=== PATIENT | female | born 1960 | race Caucasian/White ===

== ENCOUNTER → 2023-08-10 12:00 | Outpatient (REF) | payer OTHER, SELFPAY ==
--- NOTE | 2023-08-12 08:26 | PN.DIAED04 ---
Education Record
- Education Record
Class Attended: Class 2
[facility] Class Series Code: [id number]
Instructor: Registered Dietitian (Olivia Domingo, SHIMONN, LDN)
Class Length (mins): 120
== END ==
LOC: DES 12:00
PROVIDERS: ATTENDING PHYSICIAN Nurse Practitioner Family
DX: E10.65 Type 1 diabetes mellitus with hyperglycemia (principal)
CPT/HCPCS: 99078

== ENCOUNTER → 2023-08-17 12:00 | Outpatient (REF) | payer OTHER, SELFPAY ==
--- NOTE | 2023-08-19 07:49 | PN.DIAED04 ---
Education Record
- Education Record
Class Attended: Class 3
DS[facility] Class Series Code: [id number]
Instructor: Registered Dietitian (Cara Holcomb, RD, LDN, CDE)
Class Length (mins): 120
Post-Class 2 & 3 Test Score (%): 94
== END ==
LOC: DES 12:00
PROVIDERS: ATTENDING PHYSICIAN Nurse Practitioner Family
DX: E10.65 Type 1 diabetes mellitus with hyperglycemia (principal)
CPT/HCPCS: 99078

== ENCOUNTER → 2023-08-31 12:00 | Outpatient (REF) | payer OTHER, SELFPAY ==
--- NOTE | 2023-08-31 15:42 | PN.DIAED04 ---
Education Record
- Education Record
Class Attended: Class 4
DSME Class Series Code: [id number]
Instructor: Nurse Practitioner (BENNIE Ferguson)
Class Length (mins): 120
Post-Class 4 Test Score (%): 100
== END ==
LOC: DES 12:00
PROVIDERS: ATTENDING PHYSICIAN Nurse Practitioner Family
DX: E10.65 Type 1 diabetes mellitus with hyperglycemia (principal)
CPT/HCPCS: 99078

== ENCOUNTER 2024-10-03 18:59 | Inpatient (IN) | payer OTHER, SELFPAY ==
[2024-10-03] VITALS (8 sets, daily range): BP systolic 113–138; BP diastolic 52–85; BMI 19.1
--- NOTE | 2024-10-03 17:05 | HPS.HSE ---
Family Physician
-
Family Physician: NO INTERVIEW UNKNOWN
Chief Complaint
-
weakness
History of Present Illness
Patient is a 63-year-old female with past medical history significant for type 1 diabetes, hypertension, CKD, multinodular goiter, chronic CLL and stage IIb triple positive breast cancer who presented [facility] ED for evaluation of weakness. She reports
she was s/p first chemo infusion last Thursday09/26/2024 when she felt she was not returning to baseline and just felt extremely weak. After reviewing with oncology it was decided she should present to ED for evaluation and treatment. Patient reports
during workup in ED she had complaints of midsternal chest tightness with abnormal EKG that prompted cardiology workup and ultimately revealing NSTEMI. Patient was taken to laborer construction or leak gang today and found to have a CAD, Seaming Machine Operator reviewed with Dr. Hewitt
who does not feel patient is a good surgical canidate so patient will go to laborer construction or leak gang to attempt to place balloon tomorrow.
Medical History
Past Medical History
Past Medical History: Reports Other
Additional Past Medical History:
type 1 diabetes
hypertension
CKD stage I
multinodular goiter
chronic CLL
stage IIb triple positive breast cancer
diabetic retinopathy
macular degeneration
depression
Past Surgical History: Reports Other
Additional Past Surgical History:
right breast lymphnode removal
LCW port placement
Social History
Tobacco: Non-smoker
Alcohol: None
Drug: None
Living: Alone
Employment: Not Employed
Family History
Family History: Not pertinent
Allergies / Home Medications
Allergies reflects when Allergies were last updated in [facility].
Home Medications with original date entered in [facility]
Allergy/Medication List:
Allergies
Allergy/AdvReac Type Severity Reaction Status Date / Time
clindamycin Allergy Unknown Unknown Verified 10/03/24 19:46
ampicillin Allergy Anaphylaxis Verified 10/03/24 19:46
crab Allergy shellfish Verified 10/03/24 19:03
insulin lispro Allergy Unknown Verified 10/03/24 19:46
insulin lispro protamine Allergy Unknown Verified 10/03/24 19:46
sulbactam Allergy Anaphylaxis Verified 10/03/24 19:46
Home Medications
aflibercept 2 mg/0.05 mL intravitreal solution for injection 2 mg intravitreal Q12W 10/03/24
insulin NPH isoph U-100 human 100 unit/mL subcutaneous suspension 20 unit SC DAILY 10/03/24
insulin regular human 100 unit/mL injection solution 10 unit SC TID 10/03/24
lisinopril 10 mg tablet 10 mg PO DAILY 10/03/24
multivitamin 1 tab PO DAILY 10/03/24
Review of Systems
-
History Source: Patient
Constitutional: Reports No Symptoms
EENT: Reports No Symptoms
Respiratory: Reports No Symptoms
Cardiac: Reports No Symptoms
Abdomen/GI: Reports No Symptoms
: Reports No Symptoms
Musculoskeletal: Reports No Symptoms
Skin: Reports No Symptoms
Neurological: Reports Weakness
Endocrine: Reports No Symptoms
Hematologic/Lymphatic: Reports No Symptoms
Psych: Reports No Symptoms
Physical Exam
Physical Exam
General: Well Developed, Well Nourished, No Apparent Distress, Comfortable and Conversant
HEENT: NormoCephalic, Moist mucous membranes, Atraumatic, Nose Appears Normal and Ears Appear Normal
Respiratory: Clear and Non Labored Respirations
Cardiac: S1/S2 and Regular Rhythm
Breast: Deferred by me
GI: Soft, Non Tender, Non Distended and Normal Bowel Sounds
Rectal: Deferred by Provider
Genito-urinary: Deferred by me
Musculoskeletal: No Clubbing, No Cyanosis and No Edema
Skin: Warm and IV/Catheter Site (LCW port )
Neuro: Awake, Alert, AO x 3 and Nonfocal/grossly intact
Psych: Calm and Intact Judgment/Insight
Impression/Plan
-
IMPRESSION/PLAN:
#NSTEMI
#CAD
transferred from [facility] for further treatment
- Admit to IVU
- Consult Cardiology
- heparin gtt
- NPO at midnight for laborer construction or leak gang tomorrow
- continue atorvastatin and aspirin
#type 1 diabetes
- hold home insulin while NPO
- AccuCheck
- SSI
#hypertension
- continue lisinopril and metoprolol
#CKD stage I
BUN , Creat , est CrCl , eGFR
- monitor BMP
#stage IIb triple positive breast cancer
- continue to follow up out patient with [facility]
#chronic CLL
#multinodular goiter
Code status: full code
DVT prophylaxis: Heparin gtt
[2024-10-03 19:01] LABS: Glucose - Point of Care 244 mg/dl (70-99)
--- NOTE | 2024-10-03 19:25 | W.PN.UPDATE ---
Update Note
Progress Note Update
This note serves as an addendum to the H&P by police matron AJAY Rosamaria Herzog
63F TF form [facility] to hospitalist service requested by Intervention certified dialysis technician Dr Barton for cardiac cath tomorrow for PTCA residual RCA occlusion.
Patient was presented with fatigue plus abnormal EKG with TWI. Dxed NSTEMI. Patient underwent cardiac cath found to have 2 large vessel dz and small vessel CAD.
Per [facility] Health Club Attendant discussion with CTS, not a candidate for CABG due to small vessel dz.
[facility] Club Attendant TF to under Hospitalist service for Cardiac cath in AM to intervene RCA stant and PTCA.
Significant PMHx
HX CLL
New stage II B Breast CA, last Chemo was last Thursday
IDDM with recent A1C was 8.2
Vital Signs
Temp Pulse Resp Pulse Ox
98.7 F 100 16 97
10/03/24 19:28 10/03/24 19:28 10/03/24 19:28 10/03/24 19:28
PE:
Thin , NAD , conversant
Chest : CTA
Cor: RRR S1S2
Soft benign abdomen
Recent Lab at per Health Club Attendant
WCC 39
A1C 8.2
Pending Labs
ASSESSMENT & PLAN
NSTEMI
2 large vessel dz and small vessel CAD : Not for CABG
- NPO after MN and allow clear sips till 4 Hrs prior to procedure
- Heparin gtt without bolus
- Health Club Attendant Jacome to follow in AM
Significant PMHx
HX CLL
New stage II B Breast CA, last Chemo was last Thursday
IDDM with recent A1C was 8.2
- cont all inpatient Meds form [facility]
DVT Px: Heparin gtt
Full code
IVU .
[2024-10-03] MEDS: LIPITOR PO ×2 (20:13→20:22)
[2024-10-03] MEDS: HEPARIN 25000 UNITS/250 ML IV (20:24)
[2024-10-03 20:30] LABS: APTT 27.3 Sec (23.4-35.0)
[2024-10-03 20:32] LABS: ALT (SGPT) 35 U/L (0-35); AST (SGOT) 29 U/L (14-36); Albumin 3.1 g/dl (3.5-5.0); Alkaline Phosphatase 73 U/L (38-126); Blood Urea Nitrogen 19 mg/dl (7-17); Calcium 8.1 mg/dl (8.4-10.2); Carbon Dioxide 21 mmol/L (22-30); Chloride 106 mmol/L (98-107); Estimated Creatinine Clearance 74 ml/min; Glucose 234 mg/dl (70-99); Magnesium 1.8 mg/dl (1.6-2.3); Potassium 4.2 mmol/L (3.5-5.1); Sodium 131 mmol/L (135-145); Total Bilirubin 0.5 mg/dl (0.2-1.3); Total Protein 4.9 g/dl (6.3-8.2); eGFR > 60.00
[2024-10-03 20:39] LABS: Hematocrit 23.5 % (37.0-47.0); Hemoglobin 7.8 g/dL (12.0-16.0); Mean Corp Hgb Conc. 33.2 g/dL (33.0-37.0); Mean Corpuscular Hgb 32.5 pg (27.0-31.0); Mean Corpuscular Volume 97.9 fL (81.0-99.0); Mean Platelet Volume 11.4 fL (7.4-10.4); Platelet Count 108 10^3/uL (130-400); Red Cell Dist. Width 13.8 % (11.5-14.5); White Blood Cell Count 42.6 10^3/uL (4.8-10.8)
--- NOTE | 2024-10-03 22:22 | PTCARENOTE ---
Pt transferred from [facility] to [facility] at change of shift, aaox3, anxious and agitated at times. Denies chest pain, SOB or any other complaints. R band to right radial intact and inflated, no bleeding or bruising noted, good radial pulse, Pox 98% to right
hand. EKG obtained and labs drawn, heparin gtt started as per order. SR on the monitor, HR 70's, BP stable. Pt oriented to room and call light. POC ongoing and in agreement.
[2024-10-03 23:00] LABS: Glucose - Point of Care 292 mg/dl (70-99)
[2024-10-04] VITALS (12 sets, daily range): BP systolic 91–138; BP diastolic 47–67; BMI 19.1
--- NOTE | 2024-10-04 | W.PN.UPDATE ---
Update Note
Progress Note Update
RN reports patient with loose stoolx3. per notes patient's chemo was last Thursday. Denies abdomen pain, no fever, no recent travels. Discussed with admitting Will order stool studies.
--- NOTE | 2024-10-04 01:19 | PTCARENOTE ---
Pt requesting imodium d/t having 3 episodes of large watery stools, abd soft & round, hyperactive BS. Afebrile. waste machine offbearer [employer] made aware, stools studies ordered.
[2024-10-04 03:32] LABS: Blood Urea Nitrogen 21 mg/dl (7-17); Calcium 8.1 mg/dl (8.4-10.2); Carbon Dioxide 19 mmol/L (22-30); Chloride 105 mmol/L (98-107); Estimated Creatinine Clearance 63 ml/min; Glucose 399 mg/dl (70-99); HDL Cholesterol 48 mg/dl; LDL Cholesterol, Calculated 56 mg/dl; Potassium 4.7 mmol/L (3.5-5.1); Sodium 131 mmol/L (135-145); Total Cholesterol 127 mg/dl (50-199); Triglyceride 117 mg/dl (10-149); Very Low Density Lipoprotein 23 mg/dl (0-30); eGFR > 60.00
[2024-10-04 03:44] LABS: APTT 44.8 Sec (23.4-35.0)
[2024-10-04 05:32] LABS: Glucose - Point of Care 491 mg/dl (70-99)
--- NOTE | 2024-10-04 05:55 | PTCARENOTE ---
Pt c/o feeling hot and weak @ 0530, stating that feels like her blood sugar is high. Blood sugar checked and showing RR HI, stat glucose ordered and pending. Pt concern and upset that insulin was not given to her when admitted at 1900 when her
personal device was showing higher results than ours. Pt educated on hospitals protocol and reassured that chronometer tester INSULATION NOZZLEMAN was made aware and did not order coverage as results were under 300. Also, this nurse requested a one time insulin coverage order
to administer before pt ate dinner at 2030 for blood sugar 244 and denied.
[2024-10-04 06:50] LABS: Glucose 353 mg/dl (70-99)
--- NOTE | 2024-10-04 06:54 | W.PN.UPDATE ---
Update Note
Progress Note Update
RN made HOG DRIVER aware of BS 353 in AM, insulin ordered per protocol.�
advised to check in two hours per protocol
[2024-10-04] MEDS: NOVOLOG FLEXPEN 9 UNITS SC (07:00)
[2024-10-04 08:33] LABS: Glucose - Point of Care 395 mg/dl (70-99)
--- NOTE | 2024-10-04 08:36 | CON.CAR ---
Addendum entered and electronically signed by Ilya Myers MD 10/04/24 13:26:
I saw and examined the patient.
The Farmer And Grazier's note was reviewed and I agree with the note.
Comment: Briefly, 63-year-old woman past medical history of type 1 diabetes, breast cancer and CLL who presented to [facility] on 10/01/2024 for evaluation of chest discomfort and abnormal ECG consistent with NSTEMI.
Left heart catheterization at [place] revealed two-vessel disease. Not thought to be candidate for surgical revascularization and plan is for tentative PCI later today.
No evidence of decompensated heart failure based on physical exam
Maintaining sinus rhythm on telemetry
Continue current cardiac meds: Aspirin/Plavix, high intensity statin, beta-maria de jesus and heparin drip
Eventual cardiac rehab
Original Note:
Consultation
Consultation Request
Date/Time Consultation Requested: 10/03/24 at 2000
Date/Time Consultation Performed: 10/04/24 at 1015
Requesting Provider: Dr. Johnson
Performing Provider: Dr. Myers
Reason for Consultation: Chest pain, CAD
Medical History
-
History of Present Illness:
Patient was transferred from [facility] to [facility] on 10/03/2024 and cardiology is now consulted to follow along for CAD. Patient was admitted to [facility] on 10/01/2024 with chest pain and heaviness and it was unclear if her symptoms could have been related to blood
sugar control or even symptoms following recent initiation of chemotherapy for her newly diagnosed breast cancer. Patient went to [facility] and was admitted with possible ACS and ECG that showed nonspecific ST changes. Troponin was elevated, but I do
not have those results. Patient was managed as an NSTEMI at [facility] and had cardiac cath 10/03/2024 was found to have circumflex and RCA disease that was brought to [facility] for planned intervention on 10/04/2024.
[facility]:
Type 1 diabetes
Breast cancer
Stage IIb triple positive following with Dr. Mcfadden
CLL
HTN
CKD 1
Past Medical History
Past Medical History: Other (In HPI)
Past Surgical History: Gynecological (breast biopsy)
Social History
Tobacco: Non-Smoker
Alcohol: None
Drug: None
Personal: Single
Family History
Family History: Other (FH of brain tumor/cancer)
Allergies / Home Medications
Allergy/AdvReac Type Severity Reaction Status Date / Time
clindamycin Allergy Unknown Unknown Verified 10/03/24 19:46
ampicillin Allergy Anaphylaxis Verified 10/03/24 19:46
crab Allergy shellfish Verified 10/03/24 19:03
insulin lispro Allergy Unknown Verified 10/03/24 19:46
insulin lispro protamine Allergy Unknown Verified 10/03/24 19:46
sulbactam Allergy Anaphylaxis Verified 10/03/24 19:46
�Medication �Instructions �Recorded �Confirmed �Type
aflibercept 2 mg/0.05 mL 2 mg intravitreal Q12W 10/03/24 10/03/24 History
intravitreal solution for injection
insulin NPH isoph U-100 human 100 20 unit SC DAILY 10/03/24 10/03/24 History
unit/mL subcutaneous suspension
insulin regular human 100 unit/mL 10 unit SC TID 10/03/24 10/03/24 History
injection solution
lisinopril 10 mg tablet 10 mg PO DAILY 10/03/24 10/03/24 History
multivitamin 1 tab PO DAILY 10/03/24 10/03/24 History
Review of Systems
-
History Source: Patient
All other systems: Negative unless noted
Physical Exam
Vital Signs
Temp Pulse Resp BP Pulse Ox
98.9 F 107 20 120/52 98
10/04/24 06:44 10/04/24 07:30 10/04/24 06:44 10/04/24 07:10 10/04/24 06:44
GEN: NAD. AAOx3
HEENT: EOMI, MMM
LUNGS: RA. No audible wheeze
CV: SR on tele.
ABD: ND
EXT: No edema
NEURO: Gross non-focal
SKIN: No rash
Lab Results
10/03/24 19:54
10/04/24 05:39
Impression / Plan
-
PCP: Dr. Dionne Frazier
Card: ATC
Impression:
Transferred from [facility] to [facility] for cardiac cath 10/03/24
Admitted to [facility] for ACS 10/01/24
Type 1 diabetes
Breast cancer
Stage IIb triple positive following with Dr. Mcfadden
CLL
HTN
CKD
Hyponatremia
Hyperkalemia, potassium level of 5.3 on admission to [facility] improved to 4.9 without specific intervention
Echo 10/03/2024: EF 55 to 60%, mild MR
Plan:
-Patient was transferred from [facility] to [facility] on 10/03/2024 and cardiology is now consulted to follow along for CAD. Patient was admitted to [facility] on 10/01/2024 with chest pain and heaviness and it was unclear if her symptoms could have been related to
blood sugar control or even symptoms following recent initiation of chemotherapy for her newly diagnosed breast cancer. Patient went to [facility] and was admitted with possible ACS and ECG that showed nonspecific ST changes. Troponin was elevated, but I
do not have those results. Patient was managed as an NSTEMI at [facility] and had cardiac cath 10/03/2024 was found to have circumflex and RCA disease that was brought to [facility] for planned intervention on 10/04/2024.
-ECG reviewed by me is NSR with nonspecific ST changes
-Admission labs ordered and then reviewed by me and WBC is 42.6 with known history of CLL
-Hgb is 7.8 with Hgb at [facility] of 9.8. Patient was followed by oncology at [facility] as she had her first chemotherapy treatment for breast cancer last week and anemia was being blamed on her chemotherapy
-Echo as noted above was reviewed and summarized in this note by me. EF is preserved with only mild MR
-No fasting lipid profile checked at [facility] as far as I can tell in the records that were transferred, fasting lipid profile checked at [facility] on 10/04/2024 and the LDL is 56. Patient is new to atorvastatin 40 mg daily that was started at [facility] and has
been continued
-Outpatient dose of lisinopril 10 mg daily has been continued. Patient noted to have hyperkalemia with potassium level as high as 5.3 on admission to [facility], but this improved without specific intervention and lisinopril 10 mg daily was continued.
Potassium is stable at 4.7 on labs reviewed by me 10/04/2024.
-New to Toprol-XL 25 mg daily at [facility] and this has been continued
-New to aspirin 81 mg daily and this has been continued
-Plavix 600 mg PO x 1 now ordered by me and then 75 mg daily starting tomorrow for planned PCI later today
-HgbA1c of 8.2% at [facility] on 10/03/2024. Patient with known type 1 diabetes since age 23
[2024-10-04] MEDS: LOW STRENGTH ASPIRIN 81 MG PO (08:41)
[2024-10-04 08:47] LABS: Glycohemoglobin (HgbA1c) 8.3 % (4.0-5.6)
--- NOTE | 2024-10-04 09:14 | W.PN.HOSP.TC ---
Addendum entered and electronically signed by Susan Johnson MD 10/05/24 10:03:
Physical Exam
General: chronically ill looking, not in distress
HEENT: NormoCephalic, Moist mucous membranes, Atraumatic, Nose Appears Normal and Ears Appear Normal
Respiratory: Clear and Non Labored Respirations
Cardiac: S1/S2
Breast: right breast ulcerated wound
GI: Soft, Non Tender, Non Distended and Normal Bowel Sounds
Rectal: NO bleeding.
Genito-urinary: No Valente
Musculoskeletal: No Clubbing, No Cyanosis and No Edema
Skin: Warm and IV/Catheter Site (LCW port )
Neuro: Awake, Alert, AO x 3 and Nonfocal/grossly intact
Psych: Calm and Intact Judgment/Insight
Original Note:
Today's Communication/Plan
-
PRN Imodium after submitting stool for testing
f/w cardiology recommendations
consulted oncology, will know more about baseline blood counts, might need RBC infusion.
Appreciate DM/WET PRESS TENDER & wound care nurse help
Assessment / Plan
Assessment / Plan
# NSTEMI
Per cardiology: Patient was admitted to [facility] on 10/01/2024 with chest pain/ possible ACS and ECG that showed nonspecific ST changes. Troponin was elevated. Patient was managed as an NSTEMI at [facility] and had cardiac cath 10/03/2024 was found to have
circumflex and RCA disease that was brought to [facility] for planned intervention on 10/04/2024.
-currently on IV Heparin gtt
c/w BB, anti-platelets, CHEY, statin
No active chest pain, reports generalized weakness
plan for cath
LDL 56
Echo 10/03/2024: EF 55 to 60%, mild MR
Cardiology is following
# Uncontrolled DM
HGB A1C around 8
Will adjust her insulin coverage
consulted DM / WET PRESS TENDER, appreciate help
# Anemia with thrombocytopenia, related to chemotherapy.
Leukocytosis consistent with history of CLL
# New stage II B breast cancer
- Right breast ulcerated necrotic wound, consulted wound care
- last Chemo was last Thursday
Will d/w oncology
# Hyponatremia
# Underweight
# Diarrhea
No abdominal pain or tenderness
Likely chemo related but ok to do stool testing
Add PRN Imodium
Total time spent to see the patient, examine the patient, review data and lab result, discuss treatment plan with patient, nursing staff around 55 minutes
Anticipated Discharge: > 48 hours
Subjective/Interval History
-
Date of Service: October 04, 2024
Objective Data
-
Labs:
Laboratory Results
10/04/24 10/04/24 10/04/24
02:32 03:11 05:39
APTT 121.0 H 44.8 H
Sodium 131 L
Potassium 4.7
Chloride 105
Carbon Dioxide 19 L
BUN 21 H
Creatinine 0.7
Glucose 399 H 353 H
Calcium 8.1 L
10/04/24
10:00
APTT Pending
Sodium
Potassium
Chloride
Carbon Dioxide
BUN
Creatinine
Glucose
Calcium
Vital Signs:
Vital Signs
Temp Pulse Resp BP Pulse Ox
98.9 F 107 20 120/52 98
10/04/24 06:44 10/04/24 07:30 10/04/24 06:44 10/04/24 07:10 10/04/24 06:44
I&O
10/03/24 10/04/24 10/05/24
06:59 06:59 06:59
Intake Total 564 / 564
Balance 564 / 564
[2024-10-04] MEDS: NOVOLOG FLEXPEN-MODERATE RESISTANCE SC ×2 (09:38→19:37)
[2024-10-04] MEDS: NOVOLOG FLEXPEN 20 UNITS SC (09:39)
[2024-10-04] MEDS: NSS 1000 IV ×2 (09:44→16:45)
[2024-10-04] MEDS: PLAVIX 600 MG PO (09:46)
[2024-10-04 10:39] LABS: APTT 46.5 Sec (23.4-35.0)
--- NOTE | 2024-10-04 11:05 | PN.DE.MGMTRT ---
Insulin Management
- -
10/04/2024 Diabetes Management Consult
Patient admitted 10/03 from [facility]. C/O weakness, abnormal EKG, CC with blockages. PMH Type 1 diabetes, HTN, CKD, multi nodular goiter, chronic CLL, triple + breast CA. Prior to admission patient states she was taking [id number] N 17 units in
the AM with Humulin R using a SS @ meals. A1C on admission 8.3%, cr .7, eGFR > 60.
Patient is awake alert and oriented able to discuss diabetes care. States she sees Vandana Barron, @ [facility]. They have tried fast acting insulin but she 'bottomed out' so returned to R & N.
Glucose yesterday 244, 292 and 399 @ HS. Patient received no insulin.
Fasting 10/[address] Johnson has ordered 20 units novolog this AM.
Lengthy discussion with patient regarding insulin. Will continue NPH 17 units NOW and daily. Patient currently NPO for procedure, will start 4 units R ac with moderate corrective insulin.
Discussed with nurse.
Will follow.
Diabetes History
- -
Type of Diabetes: 1
Pre-Admission Diabetes Regimen
10/03/24 10/04/24
19:54 02:32
Creatinine 0.6 0.7
Lab Results
Hemoglobin A1c 8.3 % (4.0-5.6) H 10/04/24 02:32
Insulin Pump Settings
IP Diabetes Regimen
10/03/24 10/03/24 10/03/24
18:59 19:54 22:59
Glucose 234 H
POC Glucose 244 H 292 H
10/04/24 10/04/24 10/04/24
02:32 05:31 05:39
Glucose 399 H 353 H
POC Glucose 491 H*
10/04/24
08:31
Glucose
POC Glucose 395 H
Meal type: Dinner
Amount consumed: 30%
Patient Education
--- NOTE | 2024-10-04 11:05 | WOUNDNOTE ---
GLUTEAL CLEFT/BUTTOCKS
--- NOTE | 2024-10-04 11:09 | WOUNDNOTE ---
L POSTERIOR LOWER LEG
--- NOTE | 2024-10-04 11:10 | WOUNDNOTE ---
R LATERAL POSTERIOR LOWER LEG
--- NOTE | 2024-10-04 11:11 | WOUNDNOTE ---
LACY RN note: Patient admitted as transfer from [facility] for cardiac catheterization for RCA occlusion.
See H&P for complete history. Lives with mother.
PMH: Patient is a 63-year-old female with past medical history significant for type 1 diabetes, hypertension, CKD, multinodular goiter, chronic CLL and stage IIb triple positive breast cancer
Wound Location and type/assessment: Patient admitted with: R breast tumor wound. No drainage from site, dry crusted cluster, patient states discomfort when removing dressing. Patient able to turn self to side. Inner buttocks with 2 quesada dry dots,
does not appear to be pressure, patient confirmed she had them before admission. Patient had bout of diarrhea this am, said rectum sore, Calazime at bedside. Heels are intact.
Appetite: NPO
Pressure redistribution devices in place: On air mattress, ad kiera to BR.
Plan:Adaptic and ABD pad applied to R breast, will order Polysporin topical to start tomorrow. Obtained large surgical bra from OR and brought to patient to use tomorrow to secure dressing instead of tape. Patient is willing to try bra.
Will confirm orders with hospitalist and updated nurse Coby. Updated care plan and will follow as needed.
Note to case management of equipment requested for discharge: None.
Recommend follow up with Oncologist.
--- NOTE | 2024-10-04 11:27 | CM ---
Reviewed chart. Met with Ms. Payne to review discharge plans. She states prior to admission she resides alone in a first floor apartment with eight steps to enter. She states prior to admission she was independent with ambulation and adls. She
states she does not have any DME in the home. She states she has a prescription plan. Medical work-up in progress. The discharge plan is to return home when medically stable.
[2024-10-04 12:11] LABS: Glucose - Point of Care 234 mg/dl (70-99)
[2024-10-04] MEDS: HUMULIN N KWIKPEN 17 UNITS SC (12:35)
[2024-10-04] MEDS: TOPROL XL 25 MG PO (12:40)
[2024-10-04] MEDS: ZESTRIL 10 MG PO (12:41)
--- NOTE | 2024-10-04 14:08 | CON.ONC ---
Consultation
-
Date Consultation Requested: 10/04/24
Date Consultation Performed: 10/04/24
Requesting Provider: Dr. Johnson
Performing Provider: Pina Mcfadden MD
Reason for Consultation: breast cancer, CLL
Impression
Impression
NSTEMI/CAD
triple positive/node-positive right breast cancer, s/p first dose of chemo (TCHP (chemo was dose reduced at her request) +GCSF on 09/26/24)
CLL, with recent WBC count in the 60-70s
Anemia, related to chemo + CLL
IDDM
Anxiety
Plan
Plan
Await LHC today
Mgmt of CAD per cardiology
Leukocytosis is from CLL +/- GCSF - will check manual diff tomorrow
DM mgmt
Next dose of TCHP is scheduled for 10/17; will consider delay and/or further dose adjustments pending hospital recovery
We will follow along
Patient History
History of Present Illness
Sona is a patient of mine, with CLL (with baseline leukocytosis and lymphadenopathy) and also triple positive/node positive right breast cancer, who initiated chemo with taxotere, carboplatin, herceptin and perjecta on 09/26/24. She had delayed the
start of chemo for several months due to anxiety and lack of social support.
After chemo, she noted worsening fatigue and heartburn, which she'd had in the past, though more persistent. She presented to the ER at [facility] on 10/02/24 and was admitted for NSTEMI. She underwent LHC at [facility] yesterday, showing significant CAD. She was
transferred to for CT surg evaluation, but deemed a poor candidate for CT surgery. Repeat LHC with interventions is planned today.
Past-Medical/Surgical History
PMH/PSH - as above, also IDDM, cataracts, hyperlipidemia, laser eye surgeries
SH: no alcohol, non-smoker, unemployed, single
FH: N/C
Patient Medication
�Medication �Instructions �Recorded �Confirmed �Last Taken �Type
aflibercept 2 mg/0.05 mL 2 mg intravitreal Q12W 10/03/24 10/03/24 Unknown History
intravitreal solution for injection
insulin NPH isoph U-100 human 100 20 unit SC DAILY 10/03/24 10/03/24 Unknown History
unit/mL subcutaneous suspension
insulin regular human 100 unit/mL 10 unit SC TID 10/03/24 10/03/24 Unknown History
injection solution
lisinopril 10 mg tablet 10 mg PO DAILY 10/03/24 10/03/24 Unknown History
multivitamin 1 tab PO DAILY 10/03/24 10/03/24 Unknown History
Active Medications
Generic Name Dose Route Start Last Admin
Trade Name Freq PRN Reason Stop Dose Admin
Acetaminophen 650 mg 10/03/24 17:53
Acetaminophen 325 Mg Tablet PO 10/31/24 17:52
Q4HPRN PRN
mild pain/PATTON/temp> 100.4F
Al Hydrox/Mg Hydrox/Simethicone 30 ml 10/03/24 17:53
Mag/Al/Simethicone Suspension 30 Ml Cup PO 10/31/24 17:52
Q6HPRN PRN
Heartburn
Aspirin 81 mg 10/04/24 08:00 10/04/24 08:41
Aspirin 81 Mg Chewable Tablet PO 11/01/24 07:59 81 mg
DAILY SUSI Administration
Atorvastatin Calcium 40 mg 10/03/24 18:00 10/03/24 20:22
Atorvastatin (Lipitor) 40 Mg Tablet PO 10/31/24 17:59 Not Given
QPM SUSI
Bacitracin/Polymyxin B Sulfate 0 applic 10/05/24 08:00
Bacitracin/Polymyxin B (Ointment) Unit Dose Packet TOPICAL
DAILY SUSI
Bisacodyl 10 mg 10/03/24 17:53
Bisacodyl 10 Mg Rectal Suppository RECTAL 10/31/24 17:52
[id number] PRN
constipation
Dextrose 12.5 grams 10/03/24 17:53
Dextrose 50% (0.5 Grams/Ml) 50 Ml Syringe IV 10/31/24 17:52
[id number] PRN
hypoglycemia
Protocol
Glucagon 1 mg 10/03/24 17:53
Glucagon 1 Mg Vial IM 10/31/24 17:52
PRN PRN
hypoglycemia
Protocol
Heparin Sodium (Porcine) 250 unit 10/03/24 21:00
Heparin Flush Pf (100 Unit/Ml) 5 Ml Syringe IV 10/31/24 20:59
PER PROTOCOL SUSI
Heparin Sodium (Porcine) 500 unit 10/03/24 21:45 10/04/24 02:37
Heparin Flush Pf (100 Unit/Ml) 5 Ml Syringe IV 10/31/24 21:44 500 unit
PER PROTOCOL SUSI Administration
Heparin Sodium 25,000 units in 250 mls @ 0 mls/hr 10/03/24 20:00 10/03/24 20:24
Heparin [id number] Units/250 Ml IV 250 mls
PER PROTOCOL SUSI Administration
Protocol
Per Protocol
Sodium Chloride 1,000 mls @ 125 mls/hr 10/04/24 09:15 10/04/24 09:44
Nss IV 1,000 mls
.Q8H SUSI Administration
Insulin Aspart 0 units 10/04/24 07:30 10/04/24 09:38
Insulin Aspart Moderate Resistance 300 Units/3 Ml Pen.Injctr SC 11/01/24 07:29 Not Given
AC SUSI
Protocol
Insulin Human NPH 17 units 10/05/24 08:00
Insulin Nph (100 Units/Ml) 3 Ml Kwikpen SC 11/02/24 07:59
DAILY SUSI
Insulin Human Regular 4 units 10/04/24 11:30
Insulin Regular (100 Units/Ml) 3 Ml Flexpen SC 11/01/24 11:29
AC SUSI
Lisinopril 10 mg 10/04/24 08:00 10/04/24 12:41
Lisinopril 10 Mg Tablet PO 11/01/24 07:59 10 mg
DAILY SUSI Administration
Metoprolol Succinate 25 mg 10/04/24 08:00 10/04/24 12:40
Metoprolol 25 Mg Extended Release Tablet PO 11/01/24 07:59 25 mg
DAILY SUSI Administration
Polyethylene Glycol 17 grams 10/03/24 17:53
Polyethylene Glycol Powder 17 Grams Packet PO 10/31/24 17:52
DAILYPRN PRN
constipation
Senna/Docusate Sodium 1 tablet 10/03/24 17:53
Docusate W/Senna (Yara-Colace) Tablet PO 10/31/24 17:52
BIDPRN PRN
constipation
Sodium Chloride 0 flush 10/03/24 20:00
Sodium Chloride 0.9% (Flush) Syringe IV 10/31/24 19:59
PER PROTOCOL SUSI
Review of Systems
-
History Source: Patient
All Other Systems: Not reviewed unless documented
Physical Exam
-
Right breast lower outer quadrant wtih erythema/induration/weeping
General: No Apparent Distress, Comfortable and Conversant
HEENT: Negative Jaundice
Cardiology: Normal Sinus Rhythm
Pulmonary: Clear
GI: Soft
Musculoskeletal: No Clubbing, No Cyanosis and No Edema
Neurology: Non Focal, No Lateralizing Symptoms and No Word Finding Difficulty
Skin: Warm and Dry
Psych: Intact Judgement/Insight and Anxious
Labs
Lab Results
WBC 42.6 10^3/uL (4.8-10.8) H* 10/03/24 19:54
RBC 2.40 10^6/uL (4.20-5.40) L 10/03/24 19:54
Hgb 7.8 g/dL (12.0-16.0) L 10/03/24 19:54
Hct 23.5 % (37.0-47.0) L 10/03/24 19:54
MCV 97.9 fL (81.0-99.0) 10/03/24 19:54
MCH 32.5 pg (27.0-31.0) H 10/03/24 19:54
MCHC 33.2 g/dL (33.0-37.0) 10/03/24 19:54
RDW 13.8 % (11.5-14.5) 10/03/24 19:54
Plt Count 108 10^3/uL (130-400) L 10/03/24 19:54
MPV 11.4 fL (7.4-10.4) H 10/03/24 19:54
Creatinine 0.7 mg/dL (0.6-1.0) 10/04/24 02:32
Vital Signs
Vital Signs
Temp Pulse Resp BP Pulse Ox
98.8 F 97 18 138/67 97
10/04/24 12:24 10/04/24 12:41 10/04/24 12:24 10/04/24 12:41 10/04/24 12:24
[2024-10-04 15:27] LABS: ACT-LR - POC > 397 Seconds (116-155)
[2024-10-04 16:46] LABS: Glucose - Point of Care 180 mg/dl (70-99)
--- NOTE | 2024-10-04 17:34 | ITS.CL.ANGIO ---
Skilled Helper - Angioplasty
Angioplasty
Procedure Report:
LEFT HEART CATHETERIZATION
Date of Procedure: October 04, 2024
Procedures performed:
1: Percutaneous coronary intervention of the left circumflex artery with placement of a 2.0 x 26 mm Oli drug-eluting stent
2: Percutaneous coronary invention of the right coronary artery with placement of a 2.25 x 12 mm [place] drug-eluting sten
Primary Care Physician: Dr. Dionne Frazier
Primary Manager Of Sales: Dr. Cliff Rodriguez
INDICATION: The patient is a 63-year-old woman with a very complex past medical history including diabetes type 1 for over 30 years, chronic lymphocytic leukemia, recent diagnosis of breast cancer and status post her first episode of chemotherapy in
the past couple weeks, and hypertension. She presented to [place] with weakness after chemotherapy and some component of exertional chest discomfort. Echocardiography showed normal biventricular function. CPK and CK-MB's were normal however
high-sensitivity troponins were elevated and concerning for a non-STEMI. She underwent a cardiac catheterization yesterday at [facility] which revealed severe diffuse small vessel diabetic disease. The case was discussed with Dr. Freeman
Marcelina from CT surgery and after a heart team discussion we elected to proceed with a two-vessel percutaneous coronary intervention attempt.
ACCESS: The patient was prepped and draped in usual sterile fashion. A 6 Egyptian sheath was placed in the right common femoral artery using the Seldinger over the wire technique. Ultrasound guidance was used. I went from a femoral approach
anticipating need for 6 Egyptian guiding catheters and knowing that her radial artery was too small to accommodate 6 Egyptian. I had previously had some difficulty with 5 Egyptian diagnostic catheters yesterday with a diagnostic angiogram performed at
[facility].
HEMODYNAMIC FINDINGS (mmHg):
LV(s/d,EDP): Valve not crossed
Ao(s/d,m): 105/43, 66
ANGIOGRAPHIC FINDINGS from full diagnostic report performed yesterday at [facility]:
Coronary Angiography:
Dominance: Right
Left Main: Medium caliber, patent.
Left Anterior Descending: The left anterior descending artery is a very small caliber vessel that gives rise to 1 major high bifurcating diagonal branch that is also very small caliber. These vessels are diffusely calcified with diffuse small
vessel diabetic disease throughout. That said there is no focal high-grade clearly obstructive lesion angiographically in the LAD which has normal distal flow. The major diagonal branch again is diffusely diseased with a long area of 80 to 90%
stenosis in the larger medial branch.
Left Circumflex: The left circumflex is also a small caliber vessel that is diffusely diseased throughout with heavy proximal calcification. The first obtuse marginal branch is a small caliber vessel that has diffuse moderate luminal irregularities
with normal distal flow. The mid circumflex after the OM1 takeoff has a calcified thrombotic occlusion with faint antegrade flow filling what appears to be 2 small caliber distal OM's with poor antegrade flow. There is no evidence of left to left
or right to left collateral filling of these distal vessels.
Right Coronary: The right coronary artery is a very small caliber dominant vessel that gives rise to a small caliber posterior descending artery and posterior left ventricular branch. There is diffuse calcification throughout the AV groove with
mild luminal irregularities throughout. There is a smooth 70 to 80% proximal stenosis in the right coronary artery. The posterior descending artery appears to have more moderate severe small vessel disease in the midportion. Despite this there is
normal distal flow in all vessels.
Percutaneous Coronary Intervention (PCI) of the left circumflex: The patient was pretreated with oral aspirin and Plavix. Unfractionated heparin was given. A 6 Egyptian XB 3.0 guiding catheter was used to engage the left main. A long Hi-Torque
floppy wire was successfully advanced across the mid circumflex occlusion and into the distal left-sided posterior left ventricular branch. Attempts to place a second wire into the more proximal OM were not readily successful. A 1.5 mm diameter
balloon was used to dilate and distal to proximal fashion and restore antegrade flow into the distal circumflex. This also improved flow into the more proximal OM. Ultimately a Whisper wire was successfully advanced down the heavily calcified and
small caliber OM. Attempts to pass a 1.5 mm and then a 1.2 mm diameter balloon were not successful due to heavy calcification in a critically diseased small caliber vessel. I chose to stop attempting to deliver balloons in this vessel as I was not
convinced that it was large enough to safely place a 2.0 mm stent even if I could get a balloon across the lesion. I then pulled back the Whisper wire and used a Guideliner to deliver a 2.0 x 26 mm [place] drug-eluting stent over the Hi-Torque floppy
wire. The stent was deployed at 12 sandoval. The stent was postdilated at 16 sandoval distally and 18 sandoval proximally using a 2.0 x 15 mm noncompliant balloon. Care was taken to stay within the stented margins.
FINAL RESULT: 0% in-stent residual stenosis with an excellent angiographic result and DEREK-3 flow into the distal circumflex. Improved flow into the severely diseased more proximal OM that has a calcified 90% proximal stenosis with DEREK II distal
flow in a very small caliber vessel.
PCI of the right coronary artery: I then turned my attention to the right coronary artery. A 6 Egyptian JR4 guiding catheter was used to nonselectively engage this very small caliber vessel. A short Hi-Torque floppy wire was easily advanced across
the vessel and predilation was performed with a 1.5 mm diameter balloon. Next a 2.25 x 12 mm [place] drug-eluting stent was deployed at the lesion. The stent was postdilated to high-pressure with a 2.25 mm balloon. This was done in a distal to
proximal fashion taking care to stay within the stented margins.
FINAL RESULT: 0% in-stent residual stenosis with an outstanding angiographic result and DEREK-3 flow in all distal vessels.
Fluoroscopy Time (min): 20
Radiation Dose (mGy): 567
DAP (Gy.cm2): 23
Closure device: 6 Egyptian Angio-Seal to right common femoral artery
Complications: None.
ASSESSMENT:
1: Successful PCI of the left circumflex and right coronary arteries with placement of very small caliber drug-eluting stents as described above.
2: Severe residual small vessel diffuse diabetic disease in the diagonal and circumflex system that is not amenable to percutaneous coronary intervention and should be treated medically.
CONCLUSIONS and RECOMMENDATIONS:
1: Dual antiplatelet therapy with aspirin and Plavix uninterrupted for at least 6 months. She is clearly at high bleeding risk with her cancer and CLL now status post chemotherapy with anemia which is clearly multifactorial. Ideally she would
receive aspirin 81 mg daily indefinitely without interruption.
2: Medical therapy for coronary artery disease.
Lbirado Barton M.D.
Copy to: Dr. Dionne Frazier
--- NOTE | 2024-10-04 17:45 | PTCARENOTE ---
Received pt from forestry laborer. VSS. Right groin site w/ dressing clean, dry and intact. Pt denies any chest pain. Post angiography orders noted. Will monitor.
[2024-10-04 19:02] LABS: Glucose - Point of Care 218 mg/dl (70-99)
--- NOTE | 2024-10-04 19:27 | PTCARENOTE ---
Pt slept post cath until 1825. At 1850, pt's breast noted to have bled throught the dressing, pt's gown and onto the sheets. Pt cleaned up and right breast dressing changed. Pt w/o discomfort. Will monitor.
[2024-10-04] MEDS: NovoLIN R Flexpen SC (19:37)
[2024-10-04] MEDS: NSS IV (19:38)
[2024-10-04 20:19] LABS: Glucose - Point of Care 261 mg/dl (70-99)
[2024-10-04] MEDS: NovoLIN R Flexpen 4 UNITS SC (20:19)
[2024-10-04] MEDS: NOVOLOG FLEXPEN-MODERATE RESISTANCE 5 UNITS SC (20:21)
[2024-10-04] MEDS: LIPITOR 40 MG PO (20:28)
--- NOTE | 2024-10-04 20:47 | PTCARENOTE ---
Assumed care on pt at 1900, bleeding from R breast ca wound, slight pressure applied and redressed area, will monitor for bleeding. SR on the monitor, HR 80-90's, bp stable. R groin dsg CDI, no hematoma, bleeding or bruising noted, good distal
pulses. Blood sugar 261 at 2015, 1630 insulin order given and pt eating dinner. IVF infusing. Call mai within reach, POC ongoing.
[2024-10-04 21:54] LABS: Glucose - Point of Care 245 mg/dl (70-99)
[2024-10-05] VITALS (13 sets, daily range): BP systolic 106–136; BP diastolic 48–79; BMI 18.9
[2024-10-05] MEDS: NSS IV ×2 (02:16→12:42)
[2024-10-05 04:15] LABS: Hematocrit 20.1 % (37.0-47.0); Hemoglobin 6.5 g/dL (12.0-16.0); Mean Corp Hgb Conc. 32.3 g/dL (33.0-37.0); Mean Corpuscular Hgb 31.9 pg (27.0-31.0); Mean Corpuscular Volume 98.5 fL (81.0-99.0); Platelet Count 132 10^3/uL (130-400); Red Blood Cell Count 2.04 10^6/uL (4.20-5.40); Red Cell Dist. Width 13.8 % (11.5-14.5); White Blood Cell Count 41.9 10^3/uL (4.8-10.8)
[2024-10-05 04:29] LABS: Blood Urea Nitrogen 25 mg/dl (7-17); Calcium 8.3 mg/dl (8.4-10.2); Carbon Dioxide 20 mmol/L (22-30); Chloride 107 mmol/L (98-107); Estimated Creatinine Clearance 63 ml/min; Glucose 233 mg/dl (70-99); Potassium 4.4 mmol/L (3.5-5.1); Sodium 131 mmol/L (135-145); eGFR > 60.00
[2024-10-05 05:06] LABS: Absolute Neutrophils -Man Diff 10.8 10^3/uL (1.4-6.5); Band Neutrophils 3 % (0-3); Lymphocytes 74 % (20-51); Monocytes 0 % (2-9); Segmented Neutrophils 23 % (42-75)
[2024-10-05 05:07] LABS: Anisocytosis 2+; Macrocytosis 2+; Normal RBC Morphology No; Platelets Checked Yes; Total Cells Counted 100
[2024-10-05 05:08] LABS: Smudge Cells 3+
--- NOTE | 2024-10-05 05:18 | PTCARENOTE ---
Pt with critical labs this morning, hgb 6.5, hct 20.1. material control manager GALLEY WORKER made aware, repeat H& H ordered.
[2024-10-05 05:22] LABS: Hematocrit 20.5 % (37.0-47.0); Hemoglobin 6.9 g/dL (12.0-16.0)
--- NOTE | 2024-10-05 06:09 | W.PN.UPDATE ---
Update Note
Progress Note Update
Hgb level this am is 6.5, repeated hgb�to confirm is 6.9, no sign of bleeding, vital signs within baseline. One unit of blood ordered.�
--- NOTE | 2024-10-05 06:42 | PTCARENOTE ---
Repeat hgb 6.9, physician relations manager MILL MANAGER made aware, 1 unit of PRBC ordered.
[2024-10-05 07:45] LABS: Glucose - Point of Care 329 mg/dl (70-99)
[2024-10-05 08:09] LABS: ACT-LR - POC > 397 Seconds (116-155)
[2024-10-05 08:09] LABS: ACT-LR - POC > 397 Seconds (116-155)
--- NOTE | 2024-10-05 08:19 | PN.DE.MGMTRT ---
Insulin Management
- -
10/05/2024 Diabetes Management Consult
Patient admitted 10/03 from [facility]. C/O weakness, abnormal EKG, CC with blockages. PMH Type 1 diabetes, HTN, CKD, multi nodular goiter, chronic CLL, triple + breast CA. Prior to admission patient states she was taking [id number] N 17 units in
the AM with Humulin R using a SS @ meals. A1C on admission 8.3%, cr .7, eGFR > 60.
Patient is awake alert and oriented able to discuss diabetes care. States she sees Vandana Barron, @ [facility]. They have tried fast acting insulin but she 'bottomed out' so returned to R & N.
Glucose 10/04 491, 218 and 245 @ HS. NPH 17 units started ~ 11:00am, with 4 units R with meals and moderate corrective insulin.
10/05 Fasting glucose 329. AC Regular insulin increased to 8 units, will start BID NPH 17 units @ 0800 and 1999 (discussed with patient she is agreeable). Continue moderate corrective.
Patient requested all insulin doses ordered be written down for her; provided and left at bedside.
Discussed with nurse.
Will follow.
Diabetes History
- -
Type of Diabetes: 1
Pre-Admission Diabetes Regimen
10/05/24
03:45
Creatinine 0.7
Lab Results
Hemoglobin A1c 8.3 % (4.0-5.6) H 10/04/24 02:32
Insulin Pump Settings
IP Diabetes Regimen
10/04/24 10/04/24 10/04/24
08:31 12:09 16:45
Glucose
POC Glucose 395 H 234 H 180 H
10/04/24 10/04/24 10/04/24
18:50 20:17 21:53
Glucose
POC Glucose 218 H 261 H 245 H
10/05/24 10/05/24
03:45 07:43
Glucose 233 H
POC Glucose 329 H
Meal type: Dinner
Meal type: Lunch
Amount consumed: 100%
Patient Education
[2024-10-05] MEDS: TOPROL XL 25 MG PO (08:39)
[2024-10-05] MEDS: POLYSPORIN OINTMENT 1 APPLIC TOPICAL (08:39)
[2024-10-05] MEDS: PLAVIX 75 MG PO (08:39)
[2024-10-05] MEDS: LOW STRENGTH ASPIRIN 81 MG PO (08:39)
[2024-10-05] MEDS: HUMULIN N KWIKPEN 17 UNITS SC (08:40)
[2024-10-05] MEDS: NOVOLOG FLEXPEN-MODERATE RESISTANCE 9 UNITS SC (09:17)
--- NOTE | 2024-10-05 09:32 | W.PN.HOSP.TC ---
Today's Communication/Plan
-
Treat GERD
One unit of RBCs
Assessment / Plan
Assessment / Plan
Physical Exam
General: chronically ill looking, not in distress
HEENT: NormoCephalic, Moist mucous membranes, Atraumatic, Nose Appears Normal and Ears Appear Normal
Respiratory: Clear and Non Labored Respirations
Cardiac: S1/S2
Breast: right breast ulcerated wound
GI: Soft, Non Tender, Non Distended and Normal Bowel Sounds
Rectal: NO bleeding.
Genito-urinary: No Valente
Musculoskeletal: No Clubbing, No Cyanosis and No Edema
Skin: Warm and IV/Catheter Site (LCW port )
Neuro: Awake, Alert, AO x 3 and Nonfocal/grossly intact
Psych: Calm and Intact Judgment/Insight
# NSTEMI
Per cardiology: Patient was admitted to [facility] on 10/01/2024 with chest pain/ possible ACS and ECG that showed nonspecific ST changes. Troponin was elevated. Patient was managed as an NSTEMI at [facility] and had cardiac cath 10/03/2024 was found to have
circumflex and RCA disease that was brought to [facility] for planned intervention on 10/04/2024.
-currently on IV Heparin gtt
c/w BB, anti-platelets, CHEY, statin
No active chest pain, reports generalized weakness
s/p LHC 10/04 with drug eluting stents of left circumflex and right coronary arteries
LDL 56
Echo 10/03/2024: EF 55 to 60%, mild MR
Cardiology is following
Dual anti-platelet therapy for 6 months then aspirin afterward.
# Worsening GERD
Will do IV PPI BID
Add PRN IV Zofran
# Uncontrolled DM
HGB A1C around 8
Adjust her insulin coverage
consulted DM / COLD ROLLING MACHINE SETTER, appreciate help
# Anemia with thrombocytopenia, related to chemotherapy.
HGB around 6, will give one unit of RBCs.
Leukocytosis consistent with history of CLL
# New stage II B breast cancer
- Right breast ulcerated necrotic wound, consulted wound care
- last Chemo was last Thursday
Will d/w oncology
# Hyponatremia
# Underweight
# Diarrhea
No abdominal pain or tenderness
Likely chemo related but ok to do stool testing
Add PRN Imodium
Total time spent to see the patient, examine the patient, review data and lab result, discuss treatment plan with patient, nursing staff around 55 minutes
Anticipated Discharge: > 48 hours
Subjective/Interval History
-
Date of Service: October 05, 2024
She has nausea/ reflux
No chest pain
Objective Data
-
Labs:
Laboratory Results
10/05/24 10/05/24
03:45 04:42
WBC 41.9 H*
Hgb 6.5 L* 6.9 L*
Hct 20.1 L* 20.5 L*
Plt Count 132 D
Sodium 131 L
Potassium 4.4
Chloride 107
Carbon Dioxide 20 L
BUN 25 H
Creatinine 0.7
Glucose 233 H
Calcium 8.3 L
Vital Signs:
Vital Signs
Temp Pulse Resp BP Pulse Ox
98.1 F 94 20 114/49 97
10/05/24 07:00 10/05/24 08:39 10/05/24 07:00 10/05/24 08:39 10/05/24 07:00
I&O
10/04/24 10/05/24 10/06/24
06:59 06:59 06:59
Intake Total 564 / 564 1554 / 1554
Balance 564 / 564 1554 / 1554
--- NOTE | 2024-10-05 09:45 | PTCARENOTE ---
pt AOx3, complains of nausea and poor appetite. Blood sugars monitored. VSS, SR on tele monitor. 1 Unit PRBCs started this AM. right groin and right radial sites CDI. Call mai within reach.
[2024-10-05] MEDS: NovoLIN R Flexpen 4 UNITS SC (10:35)
[2024-10-05] MEDS: NSS (PRESERVATIVE FREE) 10 ML IV ×2 (11:45→19:59)
[2024-10-05] MEDS: PROTONIX IV 40 MG IV ×2 (11:45→19:58)
[2024-10-05 12:03] LABS: Glucose - Point of Care 276 mg/dl (70-99)
[2024-10-05] MEDS: NOVOLOG FLEXPEN-MODERATE RESISTANCE 5 UNITS SC (12:56)
--- NOTE | 2024-10-05 12:58 | CM ---
Reviewed chart. Met with Ms. Payne to review discharge plans. She states she is feeling weak. Reviewed I spoke with her insurance to she if she could get [employer]. She would need to go to through the state for [facility] services. She
would need to complete an application. Gave her the phone numbers to contact. Prior to admission she resides alone in a first floor apartment with sight steps to enter. Prior to admission she was independent with ambulation and adls. She does not
have any DME in the home. She has a prescription plan. Will need to see her current functional level to see if she will have any skilled care needs. Medical work-up in progress. The discharge plan is to return home with [facility] if inciated
when medically stable.
--- NOTE | 2024-10-05 13:33 | W.PN.CARDCBS ---
Addendum entered and electronically signed by Ilya Myers MD 10/05/24 17:42:
I saw and examined the patient on morning rounds.
The Artillery Officer's note was reviewed and I agree with the note.
Comment: Briefly, 63-year-old woman past medical history of type 1 diabetes, breast cancer and CLL who presented to [facility] on 10/01/2024 for evaluation of chest discomfort and abnormal ECG consistent with NSTEMI.
Left heart catheterization at [facility] revealed two-vessel disease. Not thought to be candidate for surgical revascularization and underwent PCI to the RCA and LCx 10/04/24.
Continue current cardiac meds: Aspirin/Plavix, high intensity statin and beta-maria de jesus
Received blood transfusion earlier today. Appreciate oncology input regarding anemia.
Eventual cardiac rehab
Original Note:
Today's Communication / Plan
-
Hgb as low as 6.5 this morning, 1 unit PRBCs given
Continue DAPT with aspirin and Plavix
Continue Toprol-XL, lisinopril is now on hold
Impression / Plan
-
PCP: Dr. Dionne Frazier
Card: ATC
Impression:
Transferred from [facility] to [facility] for cardiac cath 10/03/24
Admitted to [facility] for ACS 10/01/24
CAD s/p 2 mm [place] ANGEL to the circumflex and 2.25 mm [place] ANGEL to the RCA 10/04/2024
Type 1 diabetes
Breast cancer
Stage IIb triple positive following with Dr. Mcfadden
Taxotere, carboplatin, Herceptin and Perjeta infusion on 09/26/24
CLL
Anemia
HTN
CKD
Hyponatremia
Hyperkalemia, potassium level of 5.3 on admission to [facility] improved to 4.9 without specific intervention
Echo 10/03/2024: EF 55 to 60%, mild MR
Plan:
-Hgb as low as 6.5 on 6 11:25 AM and on recheck improved only slightly to 6.9. Patient also following now inpatient with oncology and 1 unit PRBCs given 10/05/2024
-Patient remains on aspirin and Plavix following circumflex and RCA PCI 10/04/2024. Cannot interrupt DAPT.
-EF is preserved with only mild MR
-LDL 56. Patient is new to atorvastatin 40 mg daily that was started at [facility] and has been continued
-Outpatient dose of lisinopril 10 mg daily initially continued, but now on hold as of 10/05/2024. Patient noted to have hyperkalemia with potassium level as high as 5.3 on admission to [facility], but this improved without specific intervention and
lisinopril 10 mg daily was continued. Potassium is stable at 4.4 on labs reviewed by me 10/05/2024.
-New to Toprol-XL 25 mg daily at [facility] and this has been continued
-New to aspirin 81 mg daily and this has been continued
-HgbA1c of 8.2% at [facility] on 10/03/2024. Patient with known type 1 diabetes since age 23
HPI: Patient was transferred from [facility] to [facility] on 10/03/2024 and cardiology is now consulted to follow along for CAD. Patient was admitted to [facility] on 10/01/2024 with chest pain and heaviness and it was unclear if her symptoms could have been related to
blood sugar control or even symptoms following recent initiation of chemotherapy for her newly diagnosed breast cancer. Patient went to [facility] and was admitted with possible ACS and ECG that showed nonspecific ST changes. Troponin was elevated, but I
do not have those results. Patient was managed as an NSTEMI at [facility] and had cardiac cath 10/03/2024 was found to have circumflex and RCA disease that was brought to [facility] for planned intervention on 10/04/2024.
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
Subjective
Date of Service: October 05, 2024
No chest pain
Objective
Labs:
10/05/24 04:42
10/05/24 03:45
Labs
Hgb 6.9 g/dL (12.0-16.0) L* 10/05/24 04:42
Hct 20.5 % (37.0-47.0) L* 10/05/24 04:42
Plt Count 132 10^3/uL (130-400) D 10/05/24 03:45
APTT Cancelled 10/04/24 18:00
Sodium 131 mmol/L (135-145) L 10/05/24 03:45
Potassium 4.4 mmol/L (3.5-5.1) 10/05/24 03:45
BUN 25 mg/dl (7-17) H 10/05/24 03:45
Creatinine 0.7 mg/dL (0.6-1.0) 10/05/24 03:45
Glucose 233 mg/dl (70-99) H 10/05/24 03:45
Vital Signs and I&O:
Vital Signs
Temp Pulse Resp BP Pulse Ox
98.3 F 90 20 121/55 97
10/05/24 12:51 10/05/24 12:51 10/05/24 12:51 10/05/24 12:51 10/05/24 12:51
Vital Signs
Temp Pulse Resp BP Pulse Ox
98.3 F 90 20 121/55 97
10/05/24 12:51 10/05/24 12:51 10/05/24 12:51 10/05/24 12:51 10/05/24 12:51
Intake & Output
10/03/24 10/04/24 10/05/24 10/06/24
06:59 06:59 06:59 06:59
Intake Total 564 / 564 1554 / 1554 250 / 250
Balance 564 / 564 1554 / 1554 250 / 250
Physical Exam
Physical Exam
GEN: NAD. AAOx3
LUNGS: RA.
CV: SR on tele.
[2024-10-05] MEDS: NovoLIN R Flexpen 8 UNITS SC (14:21)
[2024-10-05 17:29] LABS: Glucose - Point of Care 94 mg/dl (70-99)
[2024-10-05 18:39] LABS: Glucose - Point of Care 57 mg/dl (70-99)
[2024-10-05] MEDS: NovoLIN R Flexpen SC (18:39)
[2024-10-05] MEDS: LIPITOR 40 MG PO (18:40)
[2024-10-05] MEDS: NOVOLOG FLEXPEN-MODERATE RESISTANCE SC (18:40)
[2024-10-05 18:57] LABS: Glucose - Point of Care 56 mg/dl (70-99)
[2024-10-05 19:12] LABS: Glucose - Point of Care 53 mg/dl (70-99)
[2024-10-05 19:49] LABS: Glucose - Point of Care 58 mg/dl (70-99)
[2024-10-05] MEDS: DEXTROSE 50% SYRINGE 12.5 GRAMS IV (19:49)
--- NOTE | 2024-10-05 20:26 | PTCARENOTE ---
Pt's blood sugar 53 asymptomatic 4 oz OJ given repeat 58. 12.5 ml Dextrose IVP given and 15 min repeat bs 132. will recheck in 2 hours
[2024-10-05 20:27] LABS: Glucose - Point of Care 132 mg/dl (70-99)
[2024-10-05 22:38] LABS: Glucose - Point of Care 117 mg/dl (70-99)
[2024-10-05] MEDS: NSS 1000 IV (22:44)
[2024-10-06] VITALS (10 sets, daily range): BP systolic 111–147; BP diastolic 57–71; PULSE 91–94; O2SAT 98; BMI 19.8
[2024-10-06 00:48] LABS: Glucose - Point of Care 104 mg/dl (70-99)
[2024-10-06 03:19] LABS: Glucose - Point of Care 125 mg/dl (70-99)
[2024-10-06] MEDS: PROTONIX IV 40 MG IV ×2 (07:57→20:12)
--- NOTE | 2024-10-06 08:03 | PN.DE.MGMTRT ---
Insulin Management
- -
10/06/2024 Diabetes Management Consult Follow up
Patient admitted 10/03 from [facility]. C/O weakness, abnormal EKG, CC with blockages. PMH Type 1 diabetes, HTN, CKD, multi nodular goiter, chronic CLL, triple + breast CA. Prior to admission patient states she was taking [id number] N 17 units in
the AM with Humulin R using a SS @ meals. A1C on admission 8.3%, cr .7, eGFR > 60.
Patient is awake alert and oriented able to discuss diabetes care. States she sees Vandana Barron, @ [facility]. They have tried fast acting insulin but she 'bottomed out' so returned to R & N.
Glucose 10/05 329 fasting. Pre lunch 276, insulin was administered for lunch but patient did not eat lunch. pre dinner 56. Received no insulin for dinner, did not receive NPH @ 8pm. HS glucose 104.
10/06 Fasting glucose 125. Will continue NPH 17 units in AM. Will reduce AC Regular insulin to 4 units, and reduce moderate corrective to low corrective AC.
Patient for possible discharge, advised patient to follow Dr. Ike pérez and discuss elevated A1C.
Discussed with nurse.
Will follow.
Diabetes History
- -
Type of Diabetes: 1
Pre-Admission Diabetes Regimen
Lab Results
Hemoglobin A1c 8.3 % (4.0-5.6) H 10/04/24 02:32
Insulin Pump Settings
IP Diabetes Regimen
10/05/24 10/05/24 10/05/24
12:01 17:27 18:37
POC Glucose 276 H 94 57 L
10/05/24 10/05/24 10/05/24
18:55 19:10 19:37
POC Glucose 56 L 53 L* 58 L
10/05/24 10/05/24 10/06/24
20:25 22:37 00:47
POC Glucose 132 H 117 H 104 H
10/06/24
03:18
POC Glucose 125 H
Meal type: Dinner
Amount consumed: 100%
Patient Education
[2024-10-06 08:36] LABS: Glucose - Point of Care 177 mg/dl (70-99)
[2024-10-06] MEDS: TOPROL XL 25 MG PO ×2 (08:45→20:11)
[2024-10-06] MEDS: NSS (PRESERVATIVE FREE) 10 ML IV ×2 (08:45→20:12)
[2024-10-06] MEDS: LOW STRENGTH ASPIRIN 81 MG PO (08:45)
[2024-10-06] MEDS: PLAVIX 75 MG PO (08:45)
--- NOTE | 2024-10-06 08:56 | W.PN.HOSP.TC ---
Today's Communication/Plan
-
dc planning
Assessment / Plan
Assessment / Plan
Physical Exam
General: chronically ill looking, not in distress
HEENT: NormoCephalic, Moist mucous membranes, Atraumatic, Nose Appears Normal and Ears Appear Normal
Respiratory: Clear and Non Labored Respirations
Cardiac: S1/S2
Breast: right breast ulcerated wound
GI: Soft, Non Tender, Non Distended and Normal Bowel Sounds
Rectal: NO bleeding.
Genito-urinary: No Valente
Musculoskeletal: No Clubbing, No Cyanosis and No Edema
Skin: Warm and IV/Catheter Site (LCW port )
Neuro: Awake, Alert, AO x 3 and Nonfocal/grossly intact
Psych: Calm and Intact Judgment/Insight
# NSTEMI
Resolving
Per cardiology: Patient was admitted to [facility] on 10/01/2024 with chest pain/ possible ACS and ECG that showed nonspecific ST changes. Troponin was elevated. Patient was managed as an NSTEMI at [facility] and had cardiac cath 10/03/2024 was found to have
circumflex and RCA disease that was brought to [facility] for planned intervention on 10/04/2024.
-s/p IV Heparin gtt
c/w BB, dual anti-platelets, CHEY, statin
No active chest pain, reports generalized weakness
s/p LHC 10/04 with drug eluting stents of left circumflex and right coronary arteries
LDL 56
Echo 10/03/2024: EF 55 to 60%, mild MR
Cardiology is following
Dual anti-platelet therapy for 6 months then aspirin afterward.
# Worsening GERD
Doing better today
c/w PPI upon discharge
Added PRN IV Zofran ( she has scripts at home from oncology)
# Uncontrolled DM
HGB A1C around 8
Adjust her insulin coverage
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
# Anemia with thrombocytopenia, related to chemotherapy.
HGB around 6, s/p one unit of RBCs 6/11.
Leukocytosis consistent with history of CLL
# New stage II B breast cancer
- Right breast ulcerated necrotic wound, consulted wound care
- last Chemo was last Thursday
D/w oncology
# Hyponatremia
No confusion
Improving
# Underweight
# Diarrhea
No abdominal pain or tenderness
Likely chemo related but ok to do stool testing
Added PRN Imodium
Total time spent to see the patient, examine the patient, review data and lab result, discuss treatment plan with patient, nursing staff around 55 minutes
Anticipated Discharge: Today
Subjective/Interval History
-
Date of Service: October 06, 2024
No heartburn
Low appetite but no abdominal pain
Objective Data
-
Labs:
Laboratory Results
10/06/24
08:43
WBC Pending
Hgb Pending
Hct Pending
Plt Count Pending
Sodium Pending
Potassium Pending
Chloride Pending
Carbon Dioxide Pending
BUN Pending
Creatinine Pending
Glucose Pending
Calcium Pending
Vital Signs:
Vital Signs
Temp Pulse Resp BP Pulse Ox
98.1 F 89 20 131/71 100
10/06/24 07:27 10/06/24 08:45 10/06/24 07:27 10/06/24 08:45 10/06/24 07:27
I&O
10/05/24 10/06/24 10/07/24
06:59 06:59 06:59
Intake Total 1554 / 1554 250 / 250
Balance 1554 / 1554 250 / 250
[2024-10-06 09:22] LABS: Hematocrit 23.1 % (37.0-47.0); Hemoglobin 7.7 g/dL (12.0-16.0); Mean Corp Hgb Conc. 33.3 g/dL (33.0-37.0); Mean Corpuscular Hgb 31.7 pg (27.0-31.0); Mean Corpuscular Volume 95.1 fL (81.0-99.0); Mean Platelet Volume 11.3 fL (7.4-10.4); Platelet Count 140 10^3/uL (130-400); Red Blood Cell Count 2.43 10^6/uL (4.20-5.40); Red Cell Dist. Width 15.2 % (11.5-14.5); White Blood Cell Count 56.8 10^3/uL (4.8-10.8)
[2024-10-06] MEDS: NovoLIN R Flexpen SC ×2 (09:39→17:57)
[2024-10-06] MEDS: NOVOLOG FLEXPEN-MODERATE RESISTANCE SC (09:40)
[2024-10-06 09:41] LABS: Blood Urea Nitrogen 18 mg/dl (7-17); Calcium 8.5 mg/dl (8.4-10.2); Carbon Dioxide 23 mmol/L (22-30); Chloride 109 mmol/L (98-107); Estimated Creatinine Clearance 65 ml/min; Glucose 170 mg/dl (70-99); Potassium 3.7 mmol/L (3.5-5.1); Sodium 135 mmol/L (135-145); eGFR > 60.00
[2024-10-06] MEDS: HUMULIN N KWIKPEN 17 UNITS SC (09:42)
[2024-10-06] MEDS: POLYSPORIN OINTMENT 1 APPLIC TOPICAL (09:44)
--- NOTE | 2024-10-06 09:55 | VATNOTE ---
During routine assessment of subcutaneous port, primary nurse with pt, states pt is discharged but doesn't know when pt is leaving and would like me to deaccess pt's port. PCN states that pt has an IV in case anything is needed between now and
discharge. Also states she flushed port with heparin this morning and has not used port since; port not heparinized at time of deaccess subsequently.
[2024-10-06] MEDS: NovoLIN R Flexpen 4 UNITS SC ×2 (10:10→13:56)
[2024-10-06] MEDS: LOPRESSOR 25 MG PO (11:38)
--- NOTE | 2024-10-06 11:42 | PTCARENOTE ---
Pt c/o SOB and 'reflux symptoms' while ambulating w/ PT. MD aware. Orders noted. At rest, pt denies and sob, chest discomfort or 'reflux symptoms'. Will monitor.
[2024-10-06 12:04] LABS: NT-proBNP 3640 pg/ml
[2024-10-06 12:42] LABS: Glucose - Point of Care 144 mg/dl (70-99)
--- NOTE | 2024-10-06 12:56 | W.PN.CARDCBS ---
Addendum entered and electronically signed by Austyn Eaton MD 10/07/24 08:08:
63-year-old woman with CLL, breast cancer, type 1 diabetes transferred from [place] for non-ST segment elevation TX with circumflex and RCA PCI October 04. Case complicated by anemia requiring transfusion transfusion
PMH: As above, hypertension, CKD, hyponatremia, history of hyperkalemia. She has some substernal discomfort today. Unclear whether it is exertional, GI related etc.
Medications: Atorvastatin 40 mg, aspirin 81 mg, metoprolol ER 25 daily, lisinopril 10 mg daily, clopidogrel 75 mg a day, IV pantoprazole, insulin
131/71, pulse 89, afebrile, weight is 49.1 kg, chronically ill-appearing, seems somewhat anxious and unhappy, head neck exam unremarkable lungs are relatively clear, regular rate rhythm, heart rate around 90 abdomen benign, extremities without
clubbing cyanosis or edema
ECG yesterday some ST depression laterally
Hemoglobin 7.7, white count 56, platelets are 140, BUN and creatinine are 18 and 0.7
Impression:
See below, as per Bridget Lopez. Reviewed in detail and agree, unless otherwise specifically noted.
Plan:
Overall, I suspect she is stable but she complains of some substernal discomfort. Now 2 days status post PCI
We will recheck a troponin and an EKG. If these are satisfactory would not object to discharge.
She is relatively tachycardic, we will increase metoprolol.
Recommended cardiac medications at discharge:
Clopidogrel 75 mg a day
Atorvastatin 40 mg a day
Aspirin 81 mg a day
Metoprolol ER 25 mg twice daily
Lisinopril 10 mg daily
Pantoprazole 40 mg daily
Follow-up to Dr. Barton
Original Note:
Today's Communication / Plan
-
Lasix 20 mg IV x1 now for acute HF
Check CXR, ordered by me
Impression / Plan
-
PCP: Dr. Dionne Frazier
Card: ATC
Impression:
Transferred from [facility] to [facility] for cardiac cath 10/03/24
Admitted to [facility] for ACS 10/01/24
CAD s/p 2 mm [place] ANGEL to the circumflex and 2.25 mm [place] ANGEL to the RCA 10/04/2024
Type 1 diabetes
Breast cancer
Stage IIb triple positive following with Dr. Mcfadden
Taxotere, carboplatin, Herceptin and Perjeta infusion on 09/26/24
CLL
Anemia
HTN
CKD
Hyponatremia
Hyperkalemia, potassium level of 5.3 on admission to [facility] improved to 4.9 without specific intervention
Possible acute HFpEF
Echo 10/03/2024: EF 55 to 60%, mild MR
Plan:
-Hgb improved to 7.7 after 1 unit PRBCs on 10/05/2024
-Patient with known breast cancer and had first round of chemotherapy regimen outlined above on 09/26/2024
-Patient remains on aspirin and Plavix following circumflex and RCA PCI 10/04/2024. Cannot interrupt DAPT.
-Patient complains of SOB and 'reflux symptoms' while ambulating with PT on 10/06/2024. Troponin level checked and is elevated at 2.18 without previous for comparison. Repeat troponin ordered for 10/06/2024 at 1645
-ECG reviewed by me without acute ischemic change 10/06/2024
-proBNP elevated at 3640 without previous for comparison, but a proBNP of this level is considered positive for likely heart failure. No known history of acute HF. EF preserved following TX. Patient was not taking a diuretic prior to admission.
Will give Lasix 20 mg IV x1 now, patient agreeable
-LDL 56. Patient is new to atorvastatin 40 mg daily that was started at [facility] and has been continued
-Outpatient dose of lisinopril 10 mg daily initially continued, but now on hold as of 10/05/2024. Patient noted to have hyperkalemia with potassium level as high as 5.3 on admission to [facility], but this improved without specific intervention and
lisinopril 10 mg daily was continued. Potassium is stable at 3.7 on labs reviewed by me 10/06/2024.
-New to Toprol-XL 25 mg daily at [facility] and this has been continued
-New to aspirin 81 mg daily and this has been continued
-New to Plavix 75 mg daily and this has been continued
-HgbA1c of 8.2% at [facility] on 10/03/2024. Patient with known type 1 diabetes since age 23
HPI: Patient was transferred from [facility] to [facility] on 10/03/2024 and cardiology is now consulted to follow along for CAD. Patient was admitted to [facility] on 10/01/2024 with chest pain and heaviness and it was unclear if her symptoms could have been related to
blood sugar control or even symptoms following recent initiation of chemotherapy for her newly diagnosed breast cancer. Patient went to [facility] and was admitted with possible ACS and ECG that showed nonspecific ST changes. Troponin was elevated, but I
do not have those results. Patient was managed as an NSTEMI at [facility] and had cardiac cath 10/03/2024 was found to have circumflex and RCA disease that was brought to [facility] for planned intervention on 10/04/2024.
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
Subjective
Date of Service: October 06, 2024
She feels swollen in her legs, this is not her baseline
Objective
Labs:
10/06/24 08:43
10/06/24 08:43
Labs
Hgb 7.7 g/dL (12.0-16.0) L 10/06/24 08:43
Hct 23.1 % (37.0-47.0) L 10/06/24 08:43
Plt Count 140 10^3/uL (130-400) 10/06/24 08:43
APTT Cancelled 10/04/24 18:00
Sodium 135 mmol/L (135-145) 10/06/24 08:43
Potassium 3.7 mmol/L (3.5-5.1) 10/06/24 08:43
BUN 18 mg/dl (7-17) H 10/06/24 08:43
Creatinine 0.7 mg/dL (0.6-1.0) 10/06/24 08:43
Glucose 170 mg/dl (70-99) H 10/06/24 08:43
Troponins
10/06/24
11:26
Troponin I 2.180 H*
Vital Signs and I&O:
Vital Signs
Temp Pulse Resp BP Pulse Ox
98.7 F 89 18 130/63 100
10/06/24 11:37 10/06/24 11:38 10/06/24 11:37 10/06/24 11:38 10/06/24 11:37
Vital Signs
Temp Pulse Resp BP Pulse Ox
98.7 F 89 18 130/63 100
10/06/24 11:37 10/06/24 11:38 10/06/24 11:37 10/06/24 11:38 10/06/24 11:37
Intake & Output
10/04/24 10/05/24 10/06/24 10/07/24
06:59 06:59 06:59 06:59
Intake Total 564 / 564 1554 / 1554 250 / 250
Balance 564 / 564 1554 / 1554 250 / 250
Physical Exam
Physical Exam
GEN: NAD. AAOx3
LUNGS: RA.
CV: SR on tele.
[2024-10-06] MEDS: LASIX 20 MG IV (15:16)
[2024-10-06 17:13] LABS: Glucose - Point of Care 58 mg/dl (70-99)
--- NOTE | 2024-10-06 17:16 | PTCARENOTE ---
Accu check 58. Pt asymptomatic. Webster juice, 4 oz given. Hypoglycemic protocol followed. Will monitor.
[2024-10-06 17:32] LABS: Glucose - Point of Care 53 mg/dl (70-99)
[2024-10-06] MEDS: LIPITOR 40 MG PO (17:57)
[2024-10-06 18:05] LABS: Glucose - Point of Care 58 mg/dl (70-99)
[2024-10-06 18:39] LABS: Glucose - Point of Care 74 mg/dl (70-99)
--- NOTE | 2024-10-06 18:40 | PTCARENOTE ---
Repeat blood glucose 74. Will monitor.
[2024-10-06 22:03] LABS: Glucose - Point of Care 155 mg/dl (70-99)
[2024-10-07 03:15] LABS: Glucose - Point of Care 294 mg/dl (70-99)
[2024-10-07 03:18] VITALS: BP 111/72
[2024-10-07 04:01] LABS: Hematocrit 22.7 % (37.0-47.0); Hemoglobin 7.5 g/dL (12.0-16.0); Mean Corpuscular Hgb 31.8 pg (27.0-31.0); Mean Corpuscular Volume 96.2 fL (81.0-99.0); Mean Platelet Volume 11.3 fL (7.4-10.4); Platelet Count 138 10^3/uL (130-400); Red Blood Cell Count 2.36 10^6/uL (4.20-5.40); Red Cell Dist. Width 14.8 % (11.5-14.5); White Blood Cell Count 49.3 10^3/uL (4.8-10.8)
[2024-10-07 04:11] LABS: Blood Urea Nitrogen 15 mg/dl (7-17); Calcium 8.2 mg/dl (8.4-10.2); Carbon Dioxide 23 mmol/L (22-30); Chloride 106 mmol/L (98-107); Estimated Creatinine Clearance 65 ml/min; Glucose 252 mg/dl (70-99); Sodium 133 mmol/L (135-145); eGFR > 60.00
[2024-10-07 07:12] VITALS: BP 128/57
[2024-10-07 07:21] VITALS: BMI 19.6
[2024-10-07 07:27] LABS: Glucose - Point of Care 300 mg/dl (70-99)
--- NOTE | 2024-10-07 07:53 | PN.DE.MGMTRT ---
Insulin Management
- -
10/07/2024: Diabetes Management Follow up
Patient admitted 10/03 from [facility]. C/O weakness, abnormal EKG, CC with blockages. PMH: T1DM, HTN, CKD, multi nodular goiter, chronic CLL, triple + breast CA. 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
@ meals. A1C on admission 8.3%, cr .7, eGFR > 60.
States she sees Vandana Barron, @ [facility]. They have tried fast acting insulin but she 'bottomed out' so returned to R & N.
Patient is awake alert and oriented, sitting up in chair eating breakfast, able to discuss diabetes care.
Glucose 10/06 53 to 144, Received NPH in AM and Regular 4 units at breakfast, pt states insulin was administered for lunch but patient did not eat lunch. then experienced an episode of hypoglycemia at dinner time pre dinner 53. Received no insulin
for dinner, did not receive NPH @ 8pm. HS glucose 155 and fasting 300 this AM. Will continue NPH 17 units in AM and AC Regular insulin 4 units. Pt has requested NovoLog corrective to be discontinued, stating that it is drastically dropping her
blood sugars and contributing to the Hypoglycemic episodes.
Will discontinue NovoLog corrective insulin per pt's request.
Patient for possible discharge, advised patient to follow Dr. Ramires ss and discuss elevated A1C.
Discussed with nurse. Will cont to follow.
Diabetes History
- -
Type of Diabetes: 1
Pre-Admission Diabetes Regimen
10/06/24 10/07/24
08:43 03:15
Creatinine 0.7 0.7
Lab Results
Hemoglobin A1c 8.3 % (4.0-5.6) H 10/04/24 02:32
Insulin Pump Settings
IP Diabetes Regimen
10/06/24 10/06/24 10/06/24
08:34 08:43 12:40
Glucose 170 H
POC Glucose 177 H 144 H
10/06/24 10/06/24 10/06/24
17:11 17:30 18:04
Glucose
POC Glucose 58 L 53 L* 58 L
10/06/24 10/06/24 10/07/24
18:38 22:01 03:14
Glucose
POC Glucose 74 155 H 294 H
10/07/24 10/07/24
03:15 07:26
Glucose 252 H
POC Glucose 300 H
Meal type: Dinner
Amount consumed: 40%
Patient Education
[2024-10-07] MEDS: TOPROL XL 25 MG PO (08:02)
[2024-10-07] MEDS: LOW STRENGTH ASPIRIN 81 MG PO (08:02)
[2024-10-07] MEDS: PLAVIX 75 MG PO (08:02)
[2024-10-07] MEDS: NSS (PRESERVATIVE FREE) 10 ML IV (08:03)
[2024-10-07] MEDS: PROTONIX IV 40 MG IV (08:03)
[2024-10-07] MEDS: POLYSPORIN OINTMENT 1 APPLIC TOPICAL (08:05)
[2024-10-07] MEDS: NovoLIN R Flexpen 4 UNITS SC (08:07)
[2024-10-07] MEDS: HUMULIN N KWIKPEN 17 UNITS SC (08:08)
--- NOTE | 2024-10-07 09:24 | W.PN.HOSP.TC ---
Today's Communication/Plan
-
dc
Assessment / Plan
Assessment / Plan
Physical Exam
General: chronically ill looking, not in distress
HEENT: NormoCephalic, Moist mucous membranes, Atraumatic, Nose Appears Normal and Ears Appear Normal
Respiratory: Clear and Non Labored Respirations
Cardiac: S1/S2
Breast: right breast ulcerated wound
GI: Soft, Non Tender, Non Distended and Normal Bowel Sounds
Rectal: NO bleeding.
Genito-urinary: No Valente
Musculoskeletal: No Clubbing, No Cyanosis and No Edema
Skin: Warm and IV/Catheter Site (LCW port )
Neuro: Awake, Alert, AO x 3 and Nonfocal/grossly intact
Psych: Calm and Intact Judgment/Insight
# NSTEMI
Resolving
Per cardiology: Patient was admitted to [facility] on 10/01/2024 with chest pain/ possible ACS and ECG that showed nonspecific ST changes. Troponin was elevated. Patient was managed as an NSTEMI at [facility] and had cardiac cath 10/03/2024 was found to have
circumflex and RCA disease that was brought to [facility] for planned intervention on 10/04/2024.
-s/p IV Heparin gtt
c/w BB, dual anti-platelets, CHEY, statin
No active chest pain, reports generalized weakness
s/p LHC 10/04 with drug eluting stents of left circumflex and right coronary arteries
LDL 56
Echo 10/03/2024: EF 55 to 60%, mild MR
Cardiology is following
Dual anti-platelet therapy for 6 months then aspirin afterward.
# Worsening GERD
Doing better today
c/w PPI upon discharge
Added PRN IV Zofran ( she has scripts at home from oncology)
# mild acute HFpEF
ProBNP checked 10/06 and was elevated. s/p 20mg IV lasix x 1 10/06. Weight down to 106 lbs. Creat stable at 0.7
ProbNP also high in cancer pts,
# Uncontrolled DM
HGB A1C around 8
Adjust her insulin coverage
consulted DM / SHANK TAPPER, appreciate help
# Anemia with thrombocytopenia, related to chemotherapy.
HGB around 6, s/p one unit of RBCs 10/05.
Leukocytosis consistent with history of CLL
# New stage II B breast cancer
- Right breast ulcerated necrotic wound, consulted wound care
- last Chemo was last Thursday
D/w oncology
# Hyponatremia
No confusion
Improving
# Underweight
# Diarrhea
No abdominal pain or tenderness
Likely chemo related but ok to do stool testing
Added PRN Imodium
Total discharge time spent to see the patient, examine the patient, review data and lab result, discuss discharge plan with patient, cardiology, nursing staff around 65 minutes
Anticipated Discharge: Today
Subjective/Interval History
-
Date of Service: October 07, 2024
She is feeling better
No sob or chest pain
Objective Data
-
Labs:
Laboratory Results
10/07/24
03:15
WBC 49.3 H*
Hgb 7.5 L
Hct 22.7 L
Plt Count 138
Sodium 133 L
Potassium 4.0
Chloride 106
Carbon Dioxide 23
BUN 15
Creatinine 0.7
Glucose 252 H
Calcium 8.2 L
Vital Signs:
Vital Signs
Temp Pulse Resp BP Pulse Ox
98.2 F 90 16 128/57 98
10/07/24 07:17 10/07/24 08:15 10/07/24 07:17 10/07/24 08:02 10/07/24 07:17
I&O
10/06/24 10/07/24 10/08/24
06:59 06:59 06:59
Intake Total 250 / 250
Balance 250 / 250
--- NOTE | 2024-10-07 09:34 | W.PN.CARDCBS ---
Addendum entered and electronically signed by Zackary Travis MD 10/07/24 12:14:
I saw and examined the patient.
The DOULA or PA's note was reviewed and I agree with the note.
Comment: General: Well developed, well nourished in NAD.
Neck: Supple, no JVD, HJR, carotids +2 B/L, no bruits bilaterally.
Heart: Non displaced PMI, RRR, no murmurs, No S3, S4, no rubs.
Lungs: Clear to auscultation bilaterally, no wheeze, rhonchi, rubs bilaterally,
normal expiratory phase.
Extremities: No clubbing, cyanosis or edema bilaterally.
Neuro: Grossly nonfocal, awake, alert and oriented x3.
No further chest pain. Stable cardiology status for discharge. Follow-up arranged. Discussed with primary service
Original Note:
Today's Communication / Plan
-
Continue DAPT
Continue high intensity statin
No further lasix, follow weight and edema at home.
Follow up arranged w/ [facility].
Impression / Plan
-
PCP: Dr. Dionne Frazier
Card: Dr. Rodriguez ([facility])
Impression:
Admitted to [facility] for ACS 10/01/24
Transferred from [facility] to [facility] for cardiac cath 10/03/24
CAD
s/p 2 mm [place] ANGEL to the circumflex and 2.25 mm [place] ANGEL to the RCA 10/04/2024
Type 1 diabetes
Breast cancer
Stage IIb triple positive following with Dr. Mcfadden
Taxotere, carboplatin, Herceptin and Perjeta infusion on 09/26/24
CLL
Anemia
HTN
CKD
Hyponatremia
Hyperkalemia, potassium level of 5.3 on admission to [facility] improved to 4.9 without specific intervention
Possible acute HFpEF
Echo 10/03/2024: EF 55 to 60%, mild MR
Plan:
-Initially presented to [facility] w/ ACS 10/01, transferred to [facility] for cardiac cath 10/03.
-Now s/p ANGEL to LCx and RCA 10/04/2024. Continue aspirin, plavix.
-Recurrent CP noted on 10/06. Trop rechecked and trending down. Down to 1.99 10/07. No recurrent pain this morning.
-Hgb overall stable at 7.5 s/p 1 unit PRBCs 10/05.
-ProBNP checked 10/06 and was elevated. s/p 20mg IV lasix x 1 10/06. Weight down to 106 lbs. Creat stable at 0.7
-Appears euvolemic. No need to continue lasix at this time. Follow weights as OP.
-LDL 56. New to lipitor 40mg daily.
-Lisinopril on hold. Continue Toprol.
-HgbA1c of 8.2% at [facility] on 10/03/2024. Patient with known type 1 diabetes since age 23
-Patient with known breast cancer and had first round of chemotherapy regimen outlined above on 09/26/2024
-Follow up arranged w/ [facility].
HPI: Patient was transferred from [facility] to [facility] on 10/03/2024 and cardiology is now consulted to follow along for CAD. Patient was admitted to [facility] on 10/01/2024 with chest pain and heaviness and it was unclear if her symptoms could have been related to
blood sugar control or even symptoms following recent initiation of chemotherapy for her newly diagnosed breast cancer. Patient went to [facility] and was admitted with possible ACS and ECG that showed nonspecific ST changes. Troponin was elevated, but I
do not have those results. Patient was managed as an NSTEMI at [facility] and had cardiac cath 10/03/2024 was found to have circumflex and RCA disease that was brought to [facility] for planned intervention on 10/04/2024.
Progress Note - Patient Accounts Manager
Subjective
Date of Service: October 07, 2024
No recurrent chest pain noted. Feeling well.
Objective
Labs:
10/07/24 03:15
10/07/24 03:15
Labs
Hgb 7.5 g/dL (12.0-16.0) L 10/07/24 03:15
Hct 22.7 % (37.0-47.0) L 10/07/24 03:15
Plt Count 138 10^3/uL (130-400) 10/07/24 03:15
APTT Cancelled 10/04/24 18:00
Sodium 133 mmol/L (135-145) L 10/07/24 03:15
Potassium 4.0 mmol/L (3.5-5.1) 10/07/24 03:15
BUN 15 mg/dl (7-17) 10/07/24 03:15
Creatinine 0.7 mg/dL (0.6-1.0) 10/07/24 03:15
Glucose 252 mg/dl (70-99) H 10/07/24 03:15
Troponins
10/06/24 10/06/24 10/07/24
11:26 17:49 03:15
Troponin I 2.180 H* 3.020 H* D 1.990 H*
Vital Signs and I&O:
Vital Signs
Temp Pulse Resp BP Pulse Ox
98.2 F 90 16 128/57 98
10/07/24 07:17 10/07/24 08:15 10/07/24 07:17 10/07/24 08:02 10/07/24 07:17
Vital Signs
Temp Pulse Resp BP Pulse Ox
98.2 F 90 16 128/57 98
10/07/24 07:17 10/07/24 08:15 10/07/24 07:17 10/07/24 08:02 10/07/24 07:17
Intake & Output
10/05/24 10/06/24 10/07/24 10/08/24
06:59 06:59 06:59 06:59
Intake Total 1554 / 1554 250 / 250
Balance 1553 250 / 250
Physical Exam
Physical Exam
GEN: No distress, awake, alert, oriented x3
HEENT: supple, anicteric, mmm
LUNGS: CTA b/l, no wheezes/rales
CV: Reg, S1/S2, no murmur
EXT: No clubbing or cyanosis, trace edema b/l LE
NEURO: Gross non-focal
SKIN: Warm, dry, no rash
[2024-10-07 11:00] VITALS: BP 139/70
[2024-10-07 11:01] VITALS: BP 139/70
--- NOTE | 2024-10-07 11:54 | CM ---
Reviewed chart. Met cirilo Mrs. Payne to review discharge plans. She states she is feeling better and maybe able to go home soon. We reviewed [facility] with [facility]. She is agreeable to [facility]. Telephone call to [facility]
Intake to make the referral. Referral sent. Prior to admission she resides alone in a first floor apartment eight steps to enter. Prior to admission she was independent with ambulation and adls She does not have any DME in the home. She has a
prescription plan. Medical work-up in progress. The discharge plan is to return home with [facility] when medically stable.
--- NOTE | 2024-10-07 12:53 | VNURNOTE ---
Home Health Liaison spoke with patient to discuss [facility] nurse/therapy, visits, schedule and homebound status. Patient is agreeable and understands that visits at home will be 2-3 x per week to assess and teach medical management. Patient is aware
that [facility] will contact them for start of care in 1-2 days after discharge from .
[facility] referral completed in [facility].
--- NOTE | 2024-10-07 13:50 | W.DCSUMMARY ---
Discharge Summary
Discharge Data
Date of Admission: 10/03/24
Date of Discharge: 10/07/24
-
Pending Results: No
Hospital Course
63 years old female was transferred from [facility] For treatment of non-ST elevation myocardial infarction. Patient was managed as an NSTEMI at [facility]. Cardiac catheterization at [facility] on 10/03/24 revealed severe diffuse small vessel diabetic
disease. The case was discussed with Dr. Pete Hewitt from CT surgery and after a heart team discussion, decision was to proceed with a two-vessel percutaneous coronary intervention attempt. Upon arrival to the hospital, she was evaluated by
acquisitions editor. She was started on intravenous heparin. She had left heart catheterization on October 04, 2024 with successful angioplasty of the left circumflex and right coronary arteries with placement of very small caliber drug-eluting stents by
. No complications reported. She was found to have severe residual small vessel diffuse diabetic disease in the diagonal and circumflex system that is not amenable to percutaneous coronary intervention and should be treated medically.
Knitting Supervisor recommended dual antiplatelet therapy postcatheterization and intervention.
Patient was evaluated by oncology. Patient has history of chronic lymphocytic leukemia with baseline leukocytosis and lymphadenopathy, she has a triple positive/node positive right breast cancer for which she was on chemotherapy with Taxotere,
carboplatin, Herceptin and Perjecta on 09/26/24. She had delayed the start of chemo for several months due to anxiety and lack of social support. Patient complained of gastroesophageal reflux disease she was started on Protonix with good improvement.
Patient was evaluated by diabetic nurse practitioner and adjusted her insulin requirement. She was evaluated by shoe parts caser and physical therapy. Knitting Supervisor recommended to continue with aspirin and Plavix for at least 6 months then to continue
with aspirin afterward. Patient remained hemodynamically stable, was able to tolerate diet and was discharged home in a stable condition with home care services.
Discharge Plan
-
Patient Disposition: Home with Home Care
Discharge Diagnosis/Procedures: Myocardial infarctions status post angioplasty with stent to left circumflex and RCA
Anemia of chronic disease status post 1 unit of blood transfusion
Gastroesophageal reflux disease, you are starting Protonix. Make sure to separate Plavix and Protonix intake by at least 2 hours.
Diet: Diabetic, Carb Controlled
Driving Restrictions: No driving for 24 hours
Other Services: Cardiac Rehab
Activity Restrictions/Additional Instructions:
Wound Care Instructions
R breast: clean with soap and water, Polysporin, adaptic and ABD pad change daily and prn soilage. To secure dressing use surgical bra.
Follow up with Oncologist.
Please call to make appointments for Phase II Cardiac Rehab:
1) [place] [facility]
[phone]
[facility]
Stand Alone Forms: DC Instructions- Cath/EP Lab
Referrals:
[facility] [Outside]
Cliff Rodriguez MD [Active, Cardiology] - 11/01/24 2:00 pm
Dionne Frazier DO [Family Provider, Family Practice]
Additional Discharge Medication Instructions: Take Protonix 20 to 30 minutes before breakfast. Take usual morning medications with breakfast.
Take Plavix 2 hours after taking Protonix
Prescriptions:
New
atorvastatin 40 mg Tablet
40 mg PO QPM Qty: 30 0RF
clopidogrel 75 mg Tablet
75 mg PO DAILY Qty: 30 0RF
aspirin 81 mg Tablet,Chewable
81 mg PO DAILY Qty: 30 0RF
metoprolol succinate 25 mg Tablet Extended Release 24 Hr
25 mg PO DAILY Qty: 30 0RF
pantoprazole [Protonix] 40 mg tablet,delayed release (DR/EC)
40 mg PO DAILY Qty: 30 0RF
Continued
multivitamin Tablet
1 tab PO DAILY
aflibercept 2 mg/0.05 mL Solution
2 mg INTRAVITREAL Q12W
Changed
insulin regular human 100 unit/mL Solution
4 unit SC TID Qty: 0 0RF
insulin NPH isoph U-100 human 100 unit/mL Suspension
17 unit SC DAILY Qty: 0 0RF
Discontinued
lisinopril 10 mg Tablet
10 mg PO DAILY
Discharge Orders:
Discharge Patient (As Directed); Ordered 10/07/24
Ordered By: Susan Johnson
Care Plan Goals
Care Plan Goals:
Problem: Readiness for enhanced knowledge related to diagnosis and treatment plan
Goal: Understand your diagnosis and treatment plan needs, including medications if applicable.
Instructions: Know your diagnosis, underlying causes and treatment plan options, including medications if applicable. Consult with your health care team to learn about your diagnosis and treatment plan, including medications if applicable.
Discharge Date and Time
Discharge Date/Time: 10/07/24 14:15
Print Language: GUYANESE
--- NOTE | 2024-10-07 14:10 | PTCARENOTE ---
Pt ambulating in room ,clarita well, gait steady. No c/o pain. R breast dsg changed as ordered. Discharge instructions reviewed with Pt, she expressed understanding.
== END 2024-10-07 14:15 | disposition home health service (06) | DRG 321 ==
LOC: IVU 18:59
PROVIDERS: Internal Medicine Cardiovascular Disease; Internal Medicine Interventional Cardiology; Nurse Practitioner Adult Health; Nurse Practitioner Family; Physician Assistant Medical; ADMITTING PHYSICIAN Internal Medicine; ATTENDING PHYSICIAN Internal Medicine; CONSULT PHYSICIAN Internal Medicine Hematology & Oncology; FAMILY PHYSICIAN Family Medicine; OTHER PHYSICIAN Internal Medicine Cardiovascular Disease
PROC: 027135Z Dilation of Coronary Artery, Two Arteries with Two Drug-eluting Intraluminal Devices, Percutaneous Approach (ICD-10-PCS; 2024-10-04)
PROC: 4A023N7 Measurement of Cardiac Sampling and Pressure, Left Heart, Percutaneous Approach (ICD-10-PCS; 2024-10-04)
PROC: 30233N1 Transfusion of Nonautologous Red Blood Cells into Peripheral Vein, Percutaneous Approach (ICD-10-PCS; 2024-10-05)
DX: I21.4 Non-ST elevation (NSTEMI) myocardial infarction (principal); I50.31 Acute diastolic (congestive) heart failure; C91.10 Chronic lymphocytic leukemia of B-cell type not having achieved remission; E87.1 Hypo-osmolality and hyponatremia; I13.0 Hypertensive heart and chronic kidney disease with heart failure and stage 1 through stage 4 chronic kidney disease, or unspecified chronic kidney disease; Z68.1 Body mass index [BMI] 19.9 or less, adult; E10.319 Type 1 diabetes mellitus with unspecified diabetic retinopathy without macular edema; E10.649 Type 1 diabetes mellitus with hypoglycemia without coma; E10.22 Type 1 diabetes mellitus with diabetic chronic kidney disease; N18.1 Chronic kidney disease, stage 1; I25.10 Atherosclerotic heart disease of native coronary artery without angina pectoris; D63.0 Anemia in neoplastic disease; D64.81 Anemia due to antineoplastic chemotherapy; T45.1X5A Adverse effect of antineoplastic and immunosuppressive drugs, initial encounter; C50.911 Malignant neoplasm of unspecified site of right female breast; E87.5 Hyperkalemia; K21.9 Gastro-esophageal reflux disease without esophagitis; F32.A Depression, unspecified; F41.9 Anxiety disorder, unspecified; D69.59 Other secondary thrombocytopenia; R19.7 Diarrhea, unspecified; R63.6 Underweight; E78.5 Hyperlipidemia, unspecified; E04.2 Nontoxic multinodular goiter; H35.30 Unspecified macular degeneration; Z79.4 Long term (current) use of insulin
CPT/HCPCS: 71046; 80048; 80053; 80061; 82947; 82962; 83036; 83735; 83880; 84484; 85014; 85018; 85027; 85347; 85730; 86850; 86900; 86901; 86920; 87070; 93005; 97116; 97163; 97167; 97535; C1725; C1760; C1769; C1874; C1887; C1894; C9600; J2997; P9016; Q9967

== ENCOUNTER → 2025-03-29 10:38 | Outpatient (REF) | payer OTHER, SELFPAY | LOC: RCS 10:38 | PROVIDERS: ATTENDING PHYSICIAN Internal Medicine Cardiovascular Disease; FAMILY PHYSICIAN Student in an Organized Health Care Education/Training Program; REFERRING PHYSICIAN Internal Medicine Hematology & Oncology | DX: Z85.3 Personal history of malignant neoplasm of breast (principal); I50.30 Unspecified diastolic (congestive) heart failure | CPT/HCPCS: 93306; 93356 ==